=== PATIENT | male | born 1970 | race Caucasian/White ===

== ENCOUNTER → 2020-05-03 19:26 | Outpatient (ROUT) | payer OTHER, SELFPAY ==
[2020-05-03 19:54] LABS: Cholesterol 192 mg/dL (140-199); Glucose 97 mg/dL (70-100); HDL Cholesterol 62 mg/dL (40-60); LDL Cholesterol Calculated 112 mg/dL (<100); Triglycerides 89 mg/dL (35-150)
[2020-05-03 20:24] LABS: Prostate Specific Antigen 0.265 ng/mL (0.10-4.00)
== END ==
PROVIDERS: Family Provider Family Medicine; PCP Family Medicine; Visit Provider Internal Medicine
DX: Z00.00 Encounter for general adult medical examination without abnormal findings (principal)
CPT/HCPCS: 80061; 82947; 84153

== ENCOUNTER 2020-12-17 08:15 | Outpatient (RCR) | payer OTHER, SELFPAY ==
--- NOTE | 2020-10-15 14:16 | PT.OPPOC ---
Physical, Occupational & Speech Therapy At [facility] Current Diagnoses Other chronic pain (10/15/20) Pain in right shoulder (10/15/20) Low back pain (10/15/20) Visit Care Team Role Provider Type Jorge Fuller DO Family Provider Physician Specialty: Family Practice Address: [address] [place] [address], [id number] Email: [email or web address] Ervin Magallon DO Attending Provider Physician Primary Care Provider Referring Provider Specialty: [facility] Address: [address] [place] [address], [id number] Email: Plan Of Care PT-OP-T Assessment and Plan Start: 10/15/20 08:12 Freq: Status: Active Protocol: Document 10/15/20 10:15 AMB (Rec: 10/19/20 14:15 AMB [email or web address]) Physical Therapy Assessment Rehab Potential Rehabilitation Potential Excellent Evaluation Complexity Number of Personal Factors/Comorbidities 1-2 Number of Body Systems Impaired 3 Clinical Presentation at Evaluation Stable Impairments Impairments Pain,ROM,Strength Goals Two Impairment Pain Short Term Goal (STG) Rodolfo will sit at his desk for work without back pain. STG Duration 4 weeks [facility]ci Goal (LTG) Rodolfo will improve his lumbar range of motion so that he has full AROM without pain. One Impairment HEP Short Term Goal (STG) Rodolfo will be independent and consistent with a home exericse program for his low back and shoulder. STG Duration 4 weeks Assessment Summary Assessment Rodolfo attends physical therapy with right sided low back pain and right shoulder stiffness. He is hoping for help with preventing severe back pain in the future, and knowing what to do to strengthen and stretch his back and shoulder. He did show signs of mild glenohumeral impingement and tightness and pain in his quadratus lumborum on the right. He will benefit from manual therapy and therapeutic exercise to improve his mobility and reduce his pain. Physical Therapy Plan Frequency and Duration Frequency of Treatment 2x/Week Duration of Treatment 6 weeks Plan of Care Start Date 10/15/20 Plan of Care End Date 06/25/21 Therapeutic Interventions Therapeutic Interventions Home Exercise Program,Joint Mobilizations,Manual Therapy, Neuromuscular Re-education, Self-Care/Home Management, Therapeutic Activities, Therapeutic Exercises Modalities Cold Pack/Ice Massage,Electric Stimulation,Hot Packs, Traction- Mechanical Next Visit Focus/Plan Next Note Type Treatment Note Next Visit Plan Progress HEP- recheck sleeper and QL stretch Plan of Care Dates Plan of Care Start Date 10/15/20 Plan of Care End Date 11/26/20 Electronically Signed by: Lauren Don, PT 10/19/20 [id number] Please Sign and Return: I have reviewed this Plan of Care and certify that the skilled therapy services above are required to meet the patient?s needs. Physician Signature Date Printed Name and Credentials Clinical Instructor Signature Printed Name and Credentials
--- NOTE | 2020-10-19 14:15 | PT.OIE ---
Current Diagnoses Other chronic pain (10/15/20) Pain in right shoulder (10/15/20) Low back pain (10/15/20) Past Medical History (Last Updated 09/07/20 @ 10:20 by Ervin Magallon DO) Anxiety (10/14/15) Chronic right shoulder pain Depression Fatigue Low back pain Low back pain associated with a spinal disorder other than radiculopathy or spinal stenosis Obesity (BMI 30-39.9) Obstructive sleep apnea syndrome Plantar fasciitis (08/2012) Pure hypercholesterolemia (06/05/17) Past Surgical History (Last Updated 09/07/20 @ 10:05 by Ervin Magallon DO) History of tonsillectomy Hx of vasectomy (09/2015) Visit Care Team Role Provider Type Jorge Fuller DO Family Provider Physician Specialty: Family Practice Address: [address] [place] [address] Email: [email or web address] [facility] Ervin Magallon DO Attending Provider Physician Primary Care Provider Referring Provider Specialty: [facility] Address: [address] [place] [address] Email: Physical Therapy Initial Evaluation PT-OP-A Visit Information Start: 10/15/20 08:12 Freq: Status: Active Protocol: Document 10/15/20 10:15 AMB (Rec: 10/15/20 15:52 AMB [email or web address]) Out-Patient Physical Therapy Visit Information Visit Information Visit Type Initial Evaluation Visit Start Time 10:15 Visit Stop Time 11:00 Total Visit Minutes 45 Visit Number 1 PT-OP-B Current Condition Start: 10/15/20 08:12 Freq: Status: Active Protocol: Document 10/15/20 10:14 AMB (Rec: 10/15/20 10:49 AMB [id number]) Current Condition History of Current Condition Onset Date A few months ago Current Complaints Right sided low back, R shoulder History of Current Condition Multiple months ago low back flared up right sided. Right sided shoulder stiffness. 3 weeks back was really uncomfortable. Right sided back flared up again with skiing. Sits at desk most days which increases stiffness . Working from home, so doesn 't have sit stand desk like he did at his office. Prior Functional Status Baseline Function- ADL's Independent Baseline Function- Mobility Independent Current Functional Impairments (Reported) Functional Limitations- ADL's Limited in ability to sit at work because of back pain, limited in end range reaching with shoulder stiffness Personal Factors Other Personal Factors That May Effect Currently working from home, Therapy/Recovery doesn't have the best ergonomic set up PT-OP-C Subjective Start: 10/15/20 08:12 Freq: Status: Active Protocol: Document 10/15/20 10:14 AMB (Rec: 10/19/20 08:58 AMB [email or web address]) Patient Questionnaires Quick Dash- Upper Extremity Quick Dash UE Score 7 Quick Dash UE Impairment 1 to 19% Impaired (Score 1-19) OP-PT Pain Assessment Comments Pain Comments 3/10 R anterior shoulder stiffness/pain. 7-8/10 R low back pain previously, now more of a 3/10 with extended sitting or specific movements PT-OP-F Manual Assessment Start: 10/15/20 08:12 Freq: Status: Active Protocol: Document 10/15/20 10:14 AMB (Rec: 10/19/20 08:58 AMB [email or web address]) Manual Assessments Soft Tissue Assessment Soft Tissue Mobility Assessment Tenderness at R paraspinals and QL PT-OP-J Posture/Palpation/Skin Start: 10/15/20 08:12 Freq: Status: Active Protocol: Document 10/15/20 10:14 AMB (Rec: 10/19/20 08:58 AMB [email or web address]) Posture Evaluation Comments Posture Comments Flat lumbar spine, mild forward head PT-OP-K Range of Motion Start: 10/15/20 08:12 Freq: Status: Active Protocol: Document 10/15/20 10:14 AMB (Rec: 10/19/20 08:58 AMB [email or web address]) Lumbar Spine Range of Motion Lumbar Spine Active Degrees Testing Position Standing Flexion 60 Extension 30 Lateral Flexion Left 10 Lateral Flexion Right 20 ROM Limitations Soft Tissue Tightness,Pain Comments Pain with left sidebending Shoulder Goniometric Range of Motion Shoulder ROM Limitations Comments Overall full ROM with the exception of ER, when reaching behind head gets stiffness pain, not so with reaching behind back PT-OP-L Special Tests Start: 10/15/20 08:12 Freq: Status: Active Protocol: Document 10/15/20 10:14 AMB (Rec: 10/19/20 08:58 AMB [email or web address]) Special Tests Shoulder Special Tests Empty Can Test Results - PT-OP-M Strength Start: 10/15/20 08:12 Freq: Status: Active Protocol: Document 10/15/20 10:14 AMB (Rec: 10/19/20 08:58 AMB [email or web address]) Shoulder Strength Shoulder Manual Muscle Testing Right Flexion 5 Normal Extension 5 Normal Abduction (C5) 5 Normal External Rotation 4 Good Internal Rotation 4 Good Left Flexion 5 Normal Extension 5 Normal Abduction (C5) 5 Normal External Rotation 5 Normal Internal Rotation 5 Normal PT-OP-Q Treatments Start: 10/15/20 08:12 Freq: Status: Active Protocol: Document 10/15/20 10:15 AMB (Rec: 10/15/20 15:53 AMB [email or web address]) Therapeutic Exercises Sidelying Exercises 2 Sidelying Exercise Name QL stretch leg off table Reps/Minutes 30x3 1 Sidelying Exercise Name sleeper stretch Side right Reps/Minutes 30x3 PT-OP-T Assessment and Plan Start: 10/15/20 08:12 Freq: Status: Active Protocol: Document 10/15/20 10:15 AMB (Rec: 10/19/20 14:15 AMB [email or web address]) Physical Therapy Assessment Rehab Potential Rehabilitation Potential Excellent Evaluation Complexity Number of Personal Factors/Comorbidities 1-2 Number of Body Systems Impaired 3 Clinical Presentation at Evaluation Stable Impairments Impairments Pain,ROM,Strength Goals Two Impairment Pain Short Term Goal (STG) Rodolfo will sit at his desk for work without back pain. STG Duration 4 weeks Residential Goal (LTG) Rodolfo will improve his lumbar range of motion so that he has full AROM without pain. One Impairment HEP Short Term Goal (STG) Rodolfo will be independent and consistent with a home exericse program for his low back and shoulder. STG Duration 4 weeks Assessment Summary Assessment Rodolfo attends physical therapy with right sided low back pain and right shoulder stiffness. He is hoping for help with preventing severe back pain in the future, and knowing what to do to strengthen and stretch his back and shoulder. He did show signs of mild glenohumeral impingement and tightness and pain in his quadratus lumborum on the right. He will benefit from manual therapy and therapeutic exercise to improve his mobility and reduce his pain. Physical Therapy Plan Frequency and Duration Frequency of Treatment 2x/Week Duration of Treatment 6 weeks Plan of Care Start Date 10/15/20 Plan of Care End Date 11/26/20 Therapeutic Interventions Therapeutic Interventions Home Exercise Program,Joint Mobilizations,Manual Therapy, Neuromuscular Re-education, Self-Care/Home Management, Therapeutic Activities, Therapeutic Exercises Modalities Cold Pack/Ice Massage,Electric Stimulation,Hot Packs, Traction- Mechanical Next Visit Focus/Plan Next Note Type Treatment Note Next Visit Plan Progress HEP- recheck sleeper and QL stretch
--- NOTE | 2020-10-22 12:59 | PT.OTN ---
Current Diagnoses Other chronic pain (10/22/20) Pain in right shoulder (10/22/20) Low back pain (10/22/20) Physical Therapy Treatment Note PT-OP-A Visit Information Start: 10/15/20 08:12 Freq: Status: Active Protocol: Document 10/22/20 07:30 AMB (Rec: 10/22/20 08:14 AMB [id number]) Out-Patient Physical Therapy Visit Information Visit Information Visit Type Treatment Note Visit Start Time 07:30 Visit Stop Time 08:15 Total Visit Minutes 45 Visit Number 2 PT-OP-B Current Condition Start: 10/15/20 08:12 Freq: Status: Active Protocol: Document 10/15/20 10:14 AMB (Rec: 10/15/20 10:49 AMB [id number]) Current Condition History of Current Condition Onset Date A few months ago Current Complaints Right sided low back, R shoulder History of Current Condition Multiple months ago low back flared up right sided. Right sided shoulder stiffness. 3 weeks back was really uncomfortable. Right sided back flared up again with skiing. Sits at desk most days which increases stiffness . Working from home, so doesn 't have sit stand desk like he did at his office. Prior Functional Status Baseline Function- ADL's Independent Baseline Function- Mobility Independent Current Functional Impairments (Reported) Functional Limitations- ADL's Limited in ability to sit at work because of back pain, limited in end range reaching with shoulder stiffness Personal Factors Other Personal Factors That May Effect Currently working from home, Therapy/Recovery doesn't have the best ergonomic set up PT-OP-C Subjective Start: 10/15/20 08:12 Freq: Status: Active Protocol: Document 10/22/20 07:30 AMB (Rec: 10/22/20 08:14 AMB [id number]) OP-PT Subjective Patient Comments Patient Comments Pt was walking around putting protectors on small trees- very uneven terrain and is a bit sore from that in the right low back today. PT-OP-F Manual Assessment Start: 10/15/20 08:12 Freq: Status: Active Protocol: Document 10/15/20 10:14 AMB (Rec: 10/19/20 08:58 AMB [email or web address]) Manual Assessments Soft Tissue Assessment Soft Tissue Mobility Assessment Tenderness at R paraspinals and QL PT-OP-J Posture/Palpation/Skin Start: 10/15/20 08:12 Freq: Status: Active Protocol: Document 10/15/20 10:14 AMB (Rec: 10/19/20 08:58 AMB [email or web address]) Posture Evaluation Comments Posture Comments Flat lumbar spine, mild forward head PT-OP-K Range of Motion Start: 10/15/20 08:12 Freq: Status: Active Protocol: Document 10/15/20 10:14 AMB (Rec: 10/19/20 08:58 AMB [email or web address]) Lumbar Spine Range of Motion Lumbar Spine Active Degrees Testing Position Standing Flexion 60 Extension 30 Lateral Flexion Left 10 Lateral Flexion Right 20 ROM Limitations Soft Tissue Tightness,Pain Comments Pain with left sidebending Shoulder Goniometric Range of Motion Shoulder ROM Limitations Comments Overall full ROM with the exception of ER, when reaching behind head gets stiffness pain, not so with reaching behind back PT-OP-L Special Tests Start: 10/15/20 08:12 Freq: Status: Active Protocol: Document 10/15/20 10:14 AMB (Rec: 10/19/20 08:58 AMB [email or web address]) Special Tests Shoulder Special Tests Empty Can Test Results - PT-OP-M Strength Start: 10/15/20 08:12 Freq: Status: Active Protocol: Document 10/15/20 10:14 AMB (Rec: 10/19/20 08:58 AMB [email or web address]) Shoulder Strength Shoulder Manual Muscle Testing Right Flexion 5 Normal Extension 5 Normal Abduction (C5) 5 Normal External Rotation 4 Good Internal Rotation 4 Good Left Flexion 5 Normal Extension 5 Normal Abduction (C5) 5 Normal External Rotation 5 Normal Internal Rotation 5 Normal PT-OP-Q Treatments Start: 10/15/20 08:12 Freq: Status: Active Protocol: Document 10/22/20 07:30 AMB (Rec: 10/22/20 12:58 AMB [email or web address]) Therapeutic Exercises Supine Exercises 2 Supine Exercise Name hip flexion SLR with TA Reps/Minutes 2x10 Comments better core stab, no back involvement 1 Supine Exercise Name table top tap down Reps/Minutes 10 Comments pt felt back engage Sidelying Exercises 3 Sidelying Exercise Name side plank (modifed on forearms knees) Reps/Minutes 30x2 2 Sidelying Exercise Name QL stretch leg off table Reps/Minutes 30x3 1 Sidelying Exercise Name sleeper stretch Side bilateral Reps/Minutes 30x3 Other Exercises 2 Other Exercise Name modified plank on forearms knees Reps/Minutes 30x2 1 Other Exercise Name estela pose with sidebend Reps/Minutes 30x2 PT-OP-T Assessment and Plan Start: 10/15/20 08:12 Freq: Status: Active Protocol: Document 10/22/20 07:30 AMB (Rec: 10/22/20 08:14 AMB [id number]) Physical Therapy Assessment Assessment Summary Assessment Pt compensated with back muscles with table top exercise, but did well with planks, has not been doing his exercises at home, but hopefull he will soon. Physical Therapy Plan Next Visit Focus/Plan Next Note Type Treatment Note Next Visit Plan Progress HEP- recheck sleeper and QL stretch
--- NOTE | 2020-10-26 16:08 | PT.OTN ---
Current Diagnoses Other chronic pain (10/26/20) Pain in right shoulder (10/26/20) Low back pain (10/26/20) Physical Therapy Treatment Note PT-OP-A Visit Information Start: 10/15/20 08:12 Freq: Status: Active Protocol: Document 10/26/20 08:15 AMB (Rec: 10/26/20 08:52 AMB [id number]) Out-Patient Physical Therapy Visit Information Visit Information Visit Type Treatment Note Visit Start Time 08:15 Visit Stop Time 09:00 Total Visit Minutes 45 Visit Number 3 PT-OP-B Current Condition Start: 10/15/20 08:12 Freq: Status: Active Protocol: Document 10/15/20 10:14 AMB (Rec: 10/15/20 10:49 AMB [id number]) Current Condition History of Current Condition Onset Date A few months ago Current Complaints Right sided low back, R shoulder History of Current Condition Multiple months ago low back flared up right sided. Right sided shoulder stiffness. 3 weeks back was really uncomfortable. Right sided back flared up again with skiing. Sits at desk most days which increases stiffness . Working from home, so doesn 't have sit stand desk like he did at his office. Prior Functional Status Baseline Function- ADL's Independent Baseline Function- Mobility Independent Current Functional Impairments (Reported) Functional Limitations- ADL's Limited in ability to sit at work because of back pain, limited in end range reaching with shoulder stiffness Personal Factors Other Personal Factors That May Effect Currently working from home, Therapy/Recovery doesn't have the best ergonomic set up PT-OP-C Subjective Start: 10/15/20 08:12 Freq: Status: Active Protocol: Document 10/26/20 08:15 AMB (Rec: 10/26/20 08:52 AMB [id number]) OP-PT Subjective Patient Comments Patient Comments Did get a chance to do exercises, a little bit of soreness but not much to report. PT-OP-F Manual Assessment Start: 10/15/20 08:12 Freq: Status: Active Protocol: Document 10/15/20 10:14 AMB (Rec: 10/19/20 08:58 AMB [email or web address]) Manual Assessments Soft Tissue Assessment Soft Tissue Mobility Assessment Tenderness at R paraspinals and QL PT-OP-J Posture/Palpation/Skin Start: 10/15/20 08:12 Freq: Status: Active Protocol: Document 10/15/20 10:14 AMB (Rec: 10/19/20 08:58 AMB [email or web address]) Posture Evaluation Comments Posture Comments Flat lumbar spine, mild forward head PT-OP-K Range of Motion Start: 10/15/20 08:12 Freq: Status: Active Protocol: Document 10/15/20 10:14 AMB (Rec: 10/19/20 08:58 AMB [email or web address]) Lumbar Spine Range of Motion Lumbar Spine Active Degrees Testing Position Standing Flexion 60 Extension 30 Lateral Flexion Left 10 Lateral Flexion Right 20 ROM Limitations Soft Tissue Tightness,Pain Comments Pain with left sidebending Shoulder Goniometric Range of Motion Shoulder ROM Limitations Comments Overall full ROM with the exception of ER, when reaching behind head gets stiffness pain, not so with reaching behind back PT-OP-L Special Tests Start: 10/15/20 08:12 Freq: Status: Active Protocol: Document 10/15/20 10:14 AMB (Rec: 10/19/20 08:58 AMB [email or web address]) Special Tests Shoulder Special Tests Empty Can Test Results - PT-OP-M Strength Start: 10/15/20 08:12 Freq: Status: Active Protocol: Document 10/15/20 10:14 AMB (Rec: 10/19/20 08:58 AMB [email or web address]) Shoulder Strength Shoulder Manual Muscle Testing Right Flexion 5 Normal Extension 5 Normal Abduction (C5) 5 Normal External Rotation 4 Good Internal Rotation 4 Good Left Flexion 5 Normal Extension 5 Normal Abduction (C5) 5 Normal External Rotation 5 Normal Internal Rotation 5 Normal PT-OP-Q Treatments Start: 10/15/20 08:12 Freq: Status: Active Protocol: Document 10/26/20 08:15 AMB (Rec: 10/26/20 16:08 AMB [email or web address]) Therapeutic Exercises Supine Exercises 3 Supine Exercise Name modified 100s (90 degrees flexion) Reps/Minutes 10 2 Supine Exercise Name hip flexion SLR with TA Reps/Minutes 2x10 Comments better core stab, no back involvement 1 Supine Exercise Name table top tap down Reps/Minutes 10 Comments pt felt back engage Sidelying Exercises 3 Sidelying Exercise Name side plank (modifed on forearms knees) Reps/Minutes 30x2 Comments showed pt full plank as well 1 Sidelying Exercise Name sleeper stretch Side bilateral Reps/Minutes 30x3 Standing Exercises 1 Standing Exercise Name pec stretch Reps/Minutes on corner 30x4 Other Exercises 1 Other Exercise Name estela pose with sidebend Reps/Minutes 30x2 PT-OP-T Assessment and Plan Start: 10/15/20 08:12 Freq: Status: Active Protocol: Document 10/26/20 08:15 AMB (Rec: 10/26/20 16:08 AMB [email or web address]) Physical Therapy Assessment Assessment Summary Assessment Pt is doing well, but continues to compensate for weak core muscles with his back. End range flexion and ER continue to bother R shoulder. Should do well with continued core progression. Physical Therapy Plan Next Visit Focus/Plan Next Note Type Treatment Note Next Visit Plan Follow up on pec stretch, and modified 100s which went to HEP this visit.
--- NOTE | 2020-10-29 16:09 | PT.OTN ---
Current Diagnoses Other chronic pain (10/29/20) Pain in right shoulder (10/29/20) Low back pain (10/29/20) Physical Therapy Treatment Note PT-OP-A Visit Information Start: 10/15/20 08:12 Freq: Status: Active Protocol: Document 10/29/20 07:58 AMB (Rec: 10/29/20 09:38 AMB [email or web address]) Out-Patient Physical Therapy Visit Information Visit Information Visit Type Treatment Note Visit Start Time 07:30 Visit Stop Time 08:15 Total Visit Minutes 45 Visit Number 4 PT-OP-B Current Condition Start: 10/15/20 08:12 Freq: Status: Active Protocol: Document 10/15/20 10:14 AMB (Rec: 10/15/20 10:49 AMB [id number]) Current Condition History of Current Condition Onset Date A few months ago Current Complaints Right sided low back, R shoulder History of Current Condition Multiple months ago low back flared up right sided. Right sided shoulder stiffness. 3 weeks back was really uncomfortable. Right sided back flared up again with skiing. Sits at desk most days which increases stiffness . Working from home, so doesn 't have sit stand desk like he did at his office. Prior Functional Status Baseline Function- ADL's Independent Baseline Function- Mobility Independent Current Functional Impairments (Reported) Functional Limitations- ADL's Limited in ability to sit at work because of back pain, limited in end range reaching with shoulder stiffness Personal Factors Other Personal Factors That May Effect Currently working from home, Therapy/Recovery doesn't have the best ergonomic set up PT-OP-C Subjective Start: 10/15/20 08:12 Freq: Status: Active Protocol: Document 10/29/20 07:30 AMB (Rec: 10/29/20 16:09 AMB [email or web address]) OP-PT Subjective Patient Comments Patient Comments Pt went kayaking but has not done his exercises. PT-OP-F Manual Assessment Start: 10/15/20 08:12 Freq: Status: Active Protocol: Document 10/15/20 10:14 AMB (Rec: 10/19/20 08:58 AMB [email or web address]) Manual Assessments Soft Tissue Assessment Soft Tissue Mobility Assessment Tenderness at R paraspinals and QL PT-OP-J Posture/Palpation/Skin Start: 10/15/20 08:12 Freq: Status: Active Protocol: Document 10/15/20 10:14 AMB (Rec: 10/19/20 08:58 AMB [email or web address]) Posture Evaluation Comments Posture Comments Flat lumbar spine, mild forward head PT-OP-K Range of Motion Start: 10/15/20 08:12 Freq: Status: Active Protocol: Document 10/15/20 10:14 AMB (Rec: 10/19/20 08:58 AMB [email or web address]) Lumbar Spine Range of Motion Lumbar Spine Active Degrees Testing Position Standing Flexion 60 Extension 30 Lateral Flexion Left 10 Lateral Flexion Right 20 ROM Limitations Soft Tissue Tightness,Pain Comments Pain with left sidebending Shoulder Goniometric Range of Motion Shoulder ROM Limitations Comments Overall full ROM with the exception of ER, when reaching behind head gets stiffness pain, not so with reaching behind back PT-OP-L Special Tests Start: 10/15/20 08:12 Freq: Status: Active Protocol: Document 10/15/20 10:14 AMB (Rec: 10/19/20 08:58 AMB [email or web address]) Special Tests Shoulder Special Tests Empty Can Test Results - PT-OP-M Strength Start: 10/15/20 08:12 Freq: Status: Active Protocol: Document 10/15/20 10:14 AMB (Rec: 10/19/20 08:58 AMB [email or web address]) Shoulder Strength Shoulder Manual Muscle Testing Right Flexion 5 Normal Extension 5 Normal Abduction (C5) 5 Normal External Rotation 4 Good Internal Rotation 4 Good Left Flexion 5 Normal Extension 5 Normal Abduction (C5) 5 Normal External Rotation 5 Normal Internal Rotation 5 Normal PT-OP-Q Treatments Start: 10/15/20 08:12 Freq: Status: Active Protocol: Document 10/29/20 07:30 AMB (Rec: 10/29/20 16:09 AMB [email or web address]) Therapeutic Exercises Supine Exercises 5 Supine Exercise Name hip flexor stretch Reps/Minutes 1 minx3 4 Supine Exercise Name foam roll pec stretch Reps/Minutes 30x2 2 Supine Exercise Name hip flexion SLR with TA Reps/Minutes 2x10 Comments better core stab, no back involvement 1 Supine Exercise Name table top tap down Reps/Minutes 10 Comments pt felt back engage Sitting Exercises 1 Sitting Exercise Name therapy ball Comments LAQ, marching, 3#elbow flex, shoulder flex PT-OP-T Assessment and Plan Start: 10/15/20 08:12 Freq: Status: Active Protocol: Document 10/29/20 07:30 AMB (Rec: 10/29/20 16:09 AMB [email or web address]) Physical Therapy Assessment Assessment Summary Assessment Pt is improving with TA stabilization, but does need to be more consistent with HEP . Physical Therapy Plan Next Visit Focus/Plan Next Note Type Treatment Note Next Visit Plan Follow up on pec stretch, and modified 100s which went to HEP this visit, hip flexor stretch off table.
--- NOTE | 2020-12-17 15:07 | PT.OTN ---
Current Diagnoses Other chronic pain (12/17/20) Pain in right shoulder (12/17/20) Low back pain (12/17/20) Physical Therapy Treatment Note PT-OP-A Visit Information Start: 10/15/20 08:12 Freq: Status: Active Protocol: Document 12/17/20 08:15 AMB (Rec: 12/17/20 15:07 AMB [email or web address]) Out-Patient Physical Therapy Visit Information Visit Information Visit Type Progress Note Visit Start Time 08:15 Visit Stop Time 09:00 Total Visit Minutes 45 Visit Number 5 PT-OP-B Current Condition Start: 10/15/20 08:12 Freq: Status: Active Protocol: Document 10/15/20 10:14 AMB (Rec: 10/15/20 10:49 AMB [id number]) Current Condition History of Current Condition Onset Date A few months ago Current Complaints Right sided low back, R shoulder History of Current Condition Multiple months ago low back flared up right sided. Right sided shoulder stiffness. 3 weeks back was really uncomfortable. Right sided back flared up again with skiing. Sits at desk most days which increases stiffness . Working from home, so doesn 't have sit stand desk like he did at his office. Prior Functional Status Baseline Function- ADL's Independent Baseline Function- Mobility Independent Current Functional Impairments (Reported) Functional Limitations- ADL's Limited in ability to sit at work because of back pain, limited in end range reaching with shoulder stiffness Personal Factors Other Personal Factors That May Effect Currently working from home, Therapy/Recovery doesn't have the best ergonomic set up PT-OP-C Subjective Start: 10/15/20 08:12 Freq: Status: Active Protocol: Document 12/17/20 08:15 AMB (Rec: 12/17/20 15:07 AMB [email or web address]) OP-PT Subjective Patient Comments Patient Comments Pt admits he has not been excellent with his exercises, but overall is feeling better. PT-OP-F Manual Assessment Start: 10/15/20 08:12 Freq: Status: Active Protocol: Document 10/15/20 10:14 AMB (Rec: 10/19/20 08:58 AMB [email or web address]) Manual Assessments Soft Tissue Assessment Soft Tissue Mobility Assessment Tenderness at R paraspinals and QL PT-OP-J Posture/Palpation/Skin Start: 10/15/20 08:12 Freq: Status: Active Protocol: Document 10/15/20 10:14 AMB (Rec: 10/19/20 08:58 AMB [email or web address]) Posture Evaluation Comments Posture Comments Flat lumbar spine, mild forward head PT-OP-K Range of Motion Start: 10/15/20 08:12 Freq: Status: Active Protocol: Document 10/15/20 10:14 AMB (Rec: 10/19/20 08:58 AMB [email or web address]) Lumbar Spine Range of Motion Lumbar Spine Active Degrees Testing Position Standing Flexion 60 Extension 30 Lateral Flexion Left 10 Lateral Flexion Right 20 ROM Limitations Soft Tissue Tightness,Pain Comments Pain with left sidebending Shoulder Goniometric Range of Motion Shoulder ROM Limitations Comments Overall full ROM with the exception of ER, when reaching behind head gets stiffness pain, not so with reaching behind back PT-OP-L Special Tests Start: 10/15/20 08:12 Freq: Status: Active Protocol: Document 10/15/20 10:14 AMB (Rec: 10/19/20 08:58 AMB [email or web address]) Special Tests Shoulder Special Tests Empty Can Test Results - PT-OP-M Strength Start: 10/15/20 08:12 Freq: Status: Active Protocol: Document 10/15/20 10:14 AMB (Rec: 10/19/20 08:58 AMB [email or web address]) Shoulder Strength Shoulder Manual Muscle Testing Right Flexion 5 Normal Extension 5 Normal Abduction (C5) 5 Normal External Rotation 4 Good Internal Rotation 4 Good Left Flexion 5 Normal Extension 5 Normal Abduction (C5) 5 Normal External Rotation 5 Normal Internal Rotation 5 Normal PT-OP-Q Treatments Start: 10/15/20 08:12 Freq: Status: Active Protocol: Document 12/17/20 08:15 AMB (Rec: 12/17/20 15:07 AMB [email or web address]) Therapeutic Exercises Sidelying Exercises 3 Sidelying Exercise Name side plank (modifed on forearms knees) Reps/Minutes 30x2 Comments showed pt full plank as well 2 Sidelying Exercise Name QL stretch leg off table Reps/Minutes 30x3 1 Sidelying Exercise Name sleeper stretch Side bilateral Reps/Minutes 30x3 Standing Exercises 1 Standing Exercise Name pec stretch Reps/Minutes on corner 30x4 PT-OP-T Assessment and Plan Start: 10/15/20 08:12 Freq: Status: Active Protocol: Document 12/17/20 08:15 AMB (Rec: 12/17/20 15:07 AMB [email or web address]) Physical Therapy Assessment Goals Two Impairment Pain Short Term Goal (STG) Rodolfo will sit at his desk for work without back pain. STG Duration PARTIALLY MET Host And Hostess Goal (LTG) Rodolfo will improve his lumbar range of motion so that he has full AROM without pain. LTG Duration MET One Impairment HEP Short Term Goal (STG) Rodolfo will be independent and consistent with a home exericse program for his low back and shoulder. STG Duration PARTIALLY MET Assessment Summary Assessment Rodolfo attends physical therapy after a break of about 6 weeks . He reports he is overall feeling better but has not been doing much of his exercises because work has been busy. Re-evaluated shoulder today and both weakness and ROM at shoulder were improved, some tightness at R QL, but overall encouraged pt to stay active throughout the year and to try to avoid long stretches of sitting to avoid further pain issues. Pt states he is ready for d/c and since his pain is better and he is able to perform his HEP (although consistency is an issue) he is d/amisha at this time. Physical Therapy Plan Frequency and Duration Frequency of Treatment 1x/Week Duration of Treatment 5 weeks Plan of Care Start Date 11/26/20 Plan of Care End Date 12/17/20 Discharge Physical Therapy Discharge Reasons Goals Met
--- NOTE | 2020-12-17 15:08 | PT.OPPOC ---
Physical, Occupational & Speech Therapy At [facility] Current Diagnoses Other chronic pain (12/17/20) Pain in right shoulder (12/17/20) Low back pain (12/17/20) Visit Care Team Role Provider Type Jorge Fuller DO Family Provider Physician Specialty: Family Practice Address: [address] [place] [address], [id number] Email: [email or web address] Ervin Magallon DO Attending Provider Physician Primary Care Provider Referring Provider Specialty: [facility] Address: [address] [place] [address], [id number] Email: Plan Of Care PT-OP-T Assessment and Plan Start: 10/15/20 08:12 Freq: Status: Active Protocol: Document 12/17/20 08:15 AMB (Rec: 12/17/20 15:07 AMB [email or web address]) Physical Therapy Assessment Goals Two Impairment Pain Short Term Goal (STG) Rodolfo will sit at his desk for work without back pain. STG Duration PARTIALLY MET Registered Nurse Hh Case Manager Goal (LTG) Rodolfo will improve his lumbar range of motion so that he has full AROM without pain. LTG Duration MET One Impairment HEP Short Term Goal (STG) Rodolfo will be independent and consistent with a home exericse program for his low back and shoulder. STG Duration PARTIALLY MET Assessment Summary Assessment Rodolfo attends physical therapy after a break of about 6 weeks . He reports he is overall feeling better but has not been doing much of his exercises because work has been busy. Re-evaluated shoulder today and both weakness and ROM at shoulder were improved, some tightness at R QL, but overall encouraged pt to stay active throughout the year and to try to avoid long stretches of sitting to avoid further back pain issues. Pt states he is ready for d/c and since his pain is better and he is able to perform his HEP (although consistency is an issue) he is d/amisha at this time. Physical Therapy Plan Frequency and Duration Frequency of Treatment 1x/Week Duration of Treatment 5 weeks Plan of Care Start Date 11/26/20 Plan of Care End Date 12/17/20 Discharge Physical Therapy Discharge Reasons Goals Met Plan of Care Dates Plan of Care Start Date 11/26/20 Plan of Care End Date 12/17/20 Electronically Signed by: Lauren Don, ANICETO 12/17/20 [id number] Please Sign and Return: I have reviewed this Plan of Care and certify that the skilled therapy services above are required to meet the patient?s needs. Physician Signature Date Printed Name and Credentials Clinical Instructor Signature Printed Name and Credentials
== END 2020-12-17 15:21 | disposition home or self-care (01) ==
LOC: PHYS 08:15
PROVIDERS: Family Provider Family Medicine; PCP Family Medicine; Referring Provider Family Medicine; Visit Provider Family Medicine
DX: M25.511 Pain in right shoulder (principal); G89.29 Other chronic pain; M54.5 Low back pain
CPT/HCPCS: 97110; 97161

== ENCOUNTER → 2021-03-22 07:05 | Outpatient (CLI) | payer OTHER, SELFPAY ==
[2021-03-22 08:19] LABS: Add Manual Diff / Slide Review NO; Basophils Absolute Auto 100 /uL (0-100); Basophils Percent Auto 1.9 % (0-2); Eosinophils Absolute Auto 100 /uL (0-450); Eosinophils Percent Auto 1.6 % (2-4); Hematocrit 41.7 % (41-53); Hemoglobin 14.2 g/dL (13.5-17.5); Lymphocytes Absolute Auto 2500 /uL (1100-4500); Lymphocytes Percent Auto 45.2 % (25-40); Mean Corpuscular HGB Conc 34.1 % (30-36); Mean Corpuscular Hemoglobin 31.1 PG (26-34); Mean Corpuscular Volume 91.1 fL (80-100); Monocytes Absolute Auto 400 /uL (0-900); Monocytes Percent Auto 7.4 % (3-14); Neutrophils Absolute Auto 2400 /uL (1500-7000); Neutrophils Percent Auto 43.9 % (50-75); Platelet Count 237 X10^3/uL (150-400); Red Blood Cell Count 4.58 X10^6/uL (4.5-5.9); Red Cell Distribution Width 13.3 % (11.6-14.8); White Blood Cell Count 5.5 X10^3/uL (4.5-11.0)
[2021-03-22 08:33] LABS: Alanine Aminotransferase 21 IU/L (<50); Albumin 4.5 g/dL (3.5-5.0); Albumin Globulin Ratio 1.9 (1.0-2.8); Alkaline Phosphatase 40 U/L (38-126); Aspartate Aminotransferase 20 IU/L (17-59); BUN Creatinine Ratio 23.3 (6-22); Bilirubin Total 0.8 mg/dL (0.2-1.3); Blood Urea Nitrogen 17 mg/dL (9-20); Calcium 9.6 mg/dL (8.4-10.2); Carbon Dioxide 27 mmol/L (22-32); Chloride 103 mmol/L (98-107); Cholesterol 169 mg/dL (140-199); Estimated Glomerular Filt Rate > 60.0 mL/min (>60); Globulin 2.4 g/dL (1.7-4.1); Glucose 92 mg/dL (70-100); HDL Cholesterol 58 mg/dL (40-60); HEMOLYSIS < 15 (0-50); LDL Cholesterol Calculated 93 mg/dL (<100); Potassium 4.3 mmol/L (3.4-5.1); Sodium 139 mmol/L (137-145); Total Protein 6.9 g/dL (6.3-8.2); Triglycerides 90 mg/dL (35-150)
[2021-03-22 09:01] LABS: Prostate Specific Antigen Scrn 0.356 ng/mL (0.1-4.0)
== END ==
PROVIDERS: Family Provider Family Medicine; PCP Family Medicine; Referring Provider Family Medicine; Visit Provider Family Medicine
DX: E66.9 Obesity, unspecified (principal); E78.00 Pure hypercholesterolemia, unspecified; Z12.5 Encounter for screening for malignant neoplasm of prostate
CPT/HCPCS: 36415; 80053; 80061; 85025; G0103

== ENCOUNTER → 2022-01-30 10:15 | Outpatient (CLI) | payer OTHER, SELFPAY ==
[2022-01-30 12:08] LABS: COVID19 -Nasal RAPID Negative (Negative)
== END ==
PROVIDERS: Family Provider Family Medicine; PCP Family Medicine; Visit Provider Surgery
DX: Z20.822 Contact with and (suspected) exposure to COVID-19 (principal); Z01.812 Encounter for preprocedural laboratory examination
CPT/HCPCS: 87635; C9803

== ENCOUNTER 2022-01-31 09:26 | Day surgery (SDC) | payer OTHER, SELFPAY ==
--- NOTE | 2022-01-31 | PATH_ITS ---
[facility] Accession Number: [id number] . 01 Material submitted: . colon - TRANSVERSE COLON POLYP . 01 Diagnosis: Transverse Colon Polyp, Biopsy: Colonic mucosa with prominent benign lymphoid aggregate. Negative for serrated lesion, dysplasia or malignancy. MRV 02/02/2022 0946 Local . 01 Electronically signed: . Jhony Sorensen MD, PhD, Pathologist NPI- [id number] . 01 Gross description: . TRANSVERSE COLON POLYP: Received in formalin is 1 fragment(s) of gama, soft tissue measuring 0.4 x 0.2 x 0.2 cm submitted entirely in 1 cassette(s) /CPE 02/01/2022 0916 Local . 01 Pathologist provided ICD-10: K63.5 . 01 CPT . 920562 Performed at: 01 [facility] [address] [place] [address] [id number] MD Shiraz Massey MD Phone: [phone]
[2022-01-31 09:46] VITALS: BP 136/89; PULSE 88; RESP 16; TEMP 36.8; O2SAT 99; BMI 30.2
[2022-01-31] MEDS: LACTATED RINGERS 1,000 ML 200 ML IV (10:02)
--- NOTE | 2022-01-31 10:41 | PM.HP.1 ---
History of Present Illness History of Present Illness Date Patient Seen: 01/31/22 Time Patient Seen: 10:41 Chief complaint: SDC Narrative: The patient presents for colorectal screening. They have never had any previous examination for such. No personal or family history of colon cancer. On further history denies any recent gastrointestinal symptoms. No nausea, vomiting, abdominal pain, loss of appetite, unexplained weight loss, change in bowel habits, diarrhea, constipation, melena, hematochezia, or bright red blood per rectum. Patient History Medical History Anxiety (10/14/15) Chronic right shoulder pain (~2020) Depression Fatigue Low back pain (~2020) Low back pain associated with a spinal disorder other than radiculopathy or spinal stenosis Obesity (BMI 30-39.9) Obstructive sleep apnea syndrome Plantar fasciitis (08/2012) Pure hypercholesterolemia (06/05/17) Surgical History History of tonsillectomy Hx of vasectomy (09/2015) Family & Social History Family History Mother Depression Father COPD (chronic obstructive pulmonary disease) Diabetes mellitus History of heart disease Hypertension Grandmother History of heart disease Grandmother History of heart disease Social History: household members spouse Tobacco & Substance use: Smoking Status Never smoker alcohol intake never alcohol intake frequency a few times a week Substance Use Type does not use Meds Home Medications and Allergies Home Medications Medication Instructions Recorded Confirmed Type paroxetine HCl 10 mg tablet (Paxil) 5 mg PO QDAY #45 tabs 04/20/21 01/31/22 Rx sodium,potassium,mag sulfates 17.5 See Rx Instructions PO .COMPLEX 01/30/22 01/30/22 Rx gram-3.13 gram-1.6 gram oral soln #354 mL (Suprep Bowel Prep Kit) Allergies Allergy/AdvReac Type Severity Reaction Status Date / Time No Known Allergies Allergy Uncoded 01/31/22 09:53 Exam Vital Signs (past 8 hours): - 01/31/22 09:46 Temperature 98.2 F Pulse Rate 88 Respiratory Rate 16 Blood Pressure 136/89 Pulse Oximetry 99 Oxygen Delivery Method Room Air Oxygen Delivery Method Room Air Narrative Exam Narrative: General adult male alert oriented no acute distress Abdomen soft nontender nondistended Assessment & Plan Assessment & Plan narrative: The patient requires colorectal screening and colonoscopy is recommended. Technical details were discussed. Risks, benefits, alternatives explained. Risks including but not limited to myocardial infarction, aspiration, bleeding, pain, missed lesion, incomplete examination, need for further radiographic studies, colonic perforation, and need for major abdominal surgery were discussed. All questions were answered to their satisfaction, and they are in agreement with this plan. Time Spent With Patient Critical Care time: I spent a total of [] minutes of critical care time on this patient's care today; this time is exclusive of procedural time.
[2022-01-31] MEDS: MIDAZOLAM 5 MG/5 ML VIAL IV (10:54)
[2022-01-31] MEDS: fentaNYL 100 MCG/2 ML INJ 250 MCG IV (11:05)
--- NOTE | 2022-01-31 11:07 | PM.OP.COLON ---
Operative Date/Time/Diagnoses Date of procedure: 01/31/22 Time of procedure: 11:07 Pre-op diagnosis: Screening Post-op diagnosis: same Procedure & Clinicians Study performed: Colonoscopy and polypectomy Same procedure as scheduled: Yes Indications: Screening Surgeon: Tino Ortiz Procedure Notes Procedure in detail: Medications: Conscious sedation using 8mg IV midazolam and 250mcg IV of fentanyl The history and physical was performed/updated and the patient is ASA class is 2. The procedure was discussed in detail with the patient. Potential risks complications including infection, bleeding, missed diagnosis, perforation, need for surgery, and were explained. Their questions were answered and informed consent was obtained. Patient was brought to the procedure room and placed standard monitoring equipment. The patient's vital signs were monitored continuously throughout the entire procedure. Prior to starting time-out was performed. The patient was placed in the left lateral recumbent position. Procedural sedation was administered. Examination began with a thorough inspection of the perianal area there was no evidence of fissures, fistulae, external hemorrhoids or cutaneous malignancy. The colonoscopy scope was then placed into the anal canal and was advanced to the cecum, which was identified by the ileocecal valve, the appendiceal orifice and the confluence of the taenia. The scope was then slowly withdrawn examining colon thoroughly in all directions, irrigating it of any residual stool. FINDINGS 1. Transverse colon-3 mm polyp removed with biopsy forceps The patient tolerated the procedure well. They will be discharged once criteria are met. The prep was of good/excellent quality. The withdrawl time was 6 minutes. The sedation time was 18 minutes. Specimen(s): other (Transverse colon polyp) Complications: none Impression: Colonic polyp Post-procedure Recommendations: Colonoscopy in 5 years Disposition: same day surgery
[2022-01-31 11:10] VITALS: BP 113/74; PULSE 94; RESP 13; TEMP 36.1; O2SAT 94
[2022-01-31 11:16] VITALS: BP 116/74; PULSE 90; RESP 14; O2SAT 94
== END 2022-01-31 11:20 | disposition home or self-care (01) ==
PROVIDERS: Family Provider Family Medicine; PCP Family Medicine; Referring Provider Surgery; Visit Provider Surgery
PROC: 0DJD8ZZ Inspection of Lower Intestinal Tract, Via Natural or Artificial Opening Endoscopic (ICD-10-PCS; CPT 45378; principal; 2022-01-31 10:45)
DX: Z12.11 Encounter for screening for malignant neoplasm of colon (principal); K63.5 Polyp of colon; E66.9 Obesity, unspecified; G47.33 Obstructive sleep apnea (adult) (pediatric); F41.9 Anxiety disorder, unspecified; F32.A Depression, unspecified
CPT/HCPCS: 45380; 99152; J2250; J3010

== ENCOUNTER → 2023-01-11 07:49 | Outpatient (CLI) | payer OTHER, SELFPAY ==
[2023-01-11 08:37] LABS: Add Manual Diff / Slide Review NO; Basophils Absolute Auto 100 /uL (0-100); Basophils Percent Auto 1.4 % (0-2); Eosinophils Absolute Auto 100 /uL (0-450); Eosinophils Percent Auto 1.6 % (2-4); Hematocrit 41.4 % (41-53); Hemoglobin 14.7 g/dL (13.5-17.5); Lymphocytes Absolute Auto 2200 /uL (1100-4500); Lymphocytes Percent Auto 39.2 % (25-40); Mean Corpuscular HGB Conc 35.5 % (30-36); Mean Corpuscular Hemoglobin 31.7 PG (26-34); Mean Corpuscular Volume 89.1 fL (80-100); Monocytes Absolute Auto 400 /uL (0-900); Monocytes Percent Auto 6.9 % (3-14); Neutrophils Absolute Auto 2800 /uL (1500-7000); Neutrophils Percent Auto 50.9 % (50-75); Platelet Count 263 X10^3/uL (150-400); Red Blood Cell Count 4.65 X10^6/uL (4.5-5.9); Red Cell Distribution Width 13.3 % (11.6-14.8); White Blood Cell Count 5.5 X10^3/uL (4.5-11.0)
[2023-01-11 09:19] LABS: Alanine Aminotransferase 24 IU/L (<50); Albumin 4.4 g/dL (3.5-5.0); Albumin Globulin Ratio 1.7 (1.0-2.8); Alkaline Phosphatase 40 U/L (38-126); Aspartate Aminotransferase 22 IU/L (17-59); BUN Creatinine Ratio 25.4 (6-22); Bilirubin Total 0.6 mg/dL (0.2-1.3); Blood Urea Nitrogen 17 mg/dL (9-20); Calcium 9.3 mg/dL (8.4-10.2); Carbon Dioxide 27 mmol/L (22-32); Chloride 102 mmol/L (98-107); Cholesterol 178 mg/dL (140-199); Estimated Glomerular Filt Rate > 60 mL/min (>60); Globulin 2.6 g/dL (1.7-4.1); Glucose 94 mg/dL (70-100); HDL Cholesterol 61 mg/dL (40-60); HEMOLYSIS < 15 (0-50); LDL Cholesterol Calculated 104 mg/dL (<100); Potassium 4.2 mmol/L (3.4-5.1); Sodium 137 mmol/L (137-145); Triglycerides 63 mg/dL (35-150)
[2023-01-11 09:39] LABS: Prostate Specific Antigen Scrn 0.365 ng/mL (0.1-4.0)
== END ==
PROVIDERS: Family Provider Family Medicine; PCP Family Medicine; Referring Provider Family Medicine; Visit Provider Family Medicine
DX: E78.00 Pure hypercholesterolemia, unspecified (principal); Z12.5 Encounter for screening for malignant neoplasm of prostate
CPT/HCPCS: 36415; 80053; 80061; 85025; G0103

== ENCOUNTER → 2024-03-12 08:00 | Outpatient (CLI) | payer OTHER, SELFPAY ==
[2024-03-12 09:37] LABS: Add Manual Diff / Slide Review NO; Basophils Absolute Auto 100 /uL (0-100); Basophils Percent Auto 0.9 % (0-2); Eosinophils Absolute Auto 100 /uL (0-450); Eosinophils Percent Auto 0.7 % (2-4); Hematocrit 43.7 % (41-53); Hemoglobin 15.2 g/dL (13.5-17.5); Lymphocytes Absolute Auto 3000 /uL (1100-4500); Lymphocytes Percent Auto 31.9 % (25-40); Mean Corpuscular HGB Conc 34.9 % (30-36); Mean Corpuscular Hemoglobin 31.4 PG (26-34); Mean Corpuscular Volume 90.1 fL (80-100); Monocytes Absolute Auto 500 /uL (0-900); Monocytes Percent Auto 5.8 % (3-14); Neutrophils Absolute Auto 5700 /uL (1500-7000); Neutrophils Percent Auto 60.7 % (50-75); Platelet Count 348 X10^3/uL (150-400); Red Blood Cell Count 4.85 X10^6/uL (4.5-5.9); White Blood Cell Count 9.3 X10^3/uL (4.5-11.0)
[2024-03-12 09:46] LABS: HEMOLYSIS < 15 (0-50)
[2024-03-12 09:51] LABS: Alanine Aminotransferase 26 IU/L (<50); Albumin 4.3 g/dL (3.5-5.0); Albumin Globulin Ratio 1.5 (1.0-2.8); Alkaline Phosphatase 49 U/L (38-126); Aspartate Aminotransferase 24 IU/L (17-59); BUN Creatinine Ratio 30.9 (6-22); Bilirubin Total 0.5 mg/dL (0.2-1.3); Blood Urea Nitrogen 21 mg/dL (9-20); Calcium 9.7 mg/dL (8.4-10.2); Carbon Dioxide 26 mmol/L (22-32); Chloride 103 mmol/L (98-107); Cholesterol 188 mg/dL (140-199); Estimated Glomerular Filt Rate > 60 mL/min (>60); Globulin 2.9 g/dL (1.7-4.1); Glucose 102 mg/dL (70-100); HDL Cholesterol 54 mg/dL (40-60); LDL Cholesterol Calculated 114 mg/dL (<100); Potassium 4.3 mmol/L (3.4-5.1); Sodium 136 mmol/L (137-145); Total Protein 7.2 g/dL (6.3-8.2); Triglycerides 99 mg/dL (35-150)
[2024-03-12 18:06] LABS: Prostate Specific Antigen Scrn 0.404 ng/mL (0.1-4.0)
== END ==
PROVIDERS: Family Provider Family Medicine; PCP Family Medicine; Referring Provider Family Medicine; Visit Provider Family Medicine
DX: E78.00 Pure hypercholesterolemia, unspecified (principal); Z12.5 Encounter for screening for malignant neoplasm of prostate
CPT/HCPCS: 36415; 80053; 80061; 85025; G0103

== ENCOUNTER → 2025-02-28 07:33 | Outpatient (CLI) | payer OTHER, SELFPAY ==
[2025-02-28 09:09] LABS: Hematocrit 41.3 % (41-53); Hemoglobin 14.5 g/dL (13.5-17.5); Mean Corpuscular HGB Conc 35.1 % (30-36); Mean Corpuscular Hemoglobin 31.6 PG (26-34); Mean Corpuscular Volume 90.3 fL (80-100); Platelet Count 271 X10^3/uL (150-400)
[2025-02-28 09:28] LABS: Alanine Aminotransferase 29 IU/L (<50); Albumin 4.5 g/dL (3.5-5.0); Albumin Globulin Ratio 1.7 (1.0-2.8); Alkaline Phosphatase 49 U/L (38-126); Blood Urea Nitrogen 15 mg/dL (9-20); Calcium 9.2 mg/dL (8.4-10.2); Carbon Dioxide 25 mmol/L (22-32); Chloride 103 mmol/L (98-107); Cholesterol 168 mg/dL (140-199); Estimated Glomerular Filt Rate > 60 mL/min (>60); Globulin 2.6 g/dL (1.7-4.1); Glucose 92 mg/dL (70-99); HDL Cholesterol 64 mg/dL (40-60); HEMOLYSIS < 15 (0-50); Potassium 4.5 mmol/L (3.4-5.1); Sodium 137 mmol/L (137-145); Total Protein 7.1 g/dL (6.3-8.2); Triglycerides 57 mg/dL (35-150)
[2025-02-28 09:58] LABS: Prostate Specific Antigen 0.330 ng/mL (0.10-4.00)
== END ==
PROVIDERS: PCP Family Medicine; Referring Provider Family Medicine; Visit Provider Family Medicine
DX: E78.00 Pure hypercholesterolemia, unspecified (principal)
CPT/HCPCS: 36415; 80053; 80061; 84153; 85027